=== PATIENT | male | born 1995 | race Two or more races ===

== ENCOUNTER 2020-07-16 10:27 | Emergency (ER) | payer SELFPAY ==
[~2020-07-16] VITALS: Ht 175.3 cm; Wt 108.9 kg
[2020-07-16 11:24] VITALS: BP 134/98
[2020-07-16] MEDS ORDERED: LIDOCAINE 1% HCL (LOCAL ANESTH.) INJ 20ML MDV IJ ONE (11:45)
[2020-07-16] MEDS ORDERED: TETANUS-DIPTH-ACEL PERTUSSIS 0.5ML SYR Tdap IM ONE (11:45)
== END 2020-07-16 13:15 | disposition home or self-care (01) ==
LOC: ER 10:27
DX: S61.412A Laceration without foreign body of left hand, initial encounter (principal); S61.452A Open bite of left hand, initial encounter; W54.0XXA Bitten by dog, initial encounter; Y93.89 Activity, other specified; Y92.89 Other specified places as the place of occurrence of the external cause; Y99.8 Other external cause status
CPT/HCPCS: 12004; 73130; 73140; 90471; 90715; 99284; J2001